=== PATIENT | female | born 1975 | race Caucasian/White ===

== ENCOUNTER 2025-01-04 17:08 | Inpatient (IN) | payer MEDICARE ==
[~2025-01-04] VITALS: Ht 152.4 cm; Wt 64.0 kg
[2025-01-04 17:32] LABS: COVID AG,FIA SOURCE NASAL SWAB
[2025-01-04 17:57] LABS: PLATELET COUNT (AUTO) 418 K/uL (150-450); RED BLOOD CELL COUNT(AUTO) 4.96 MIL/uL (4.00-5.20); RED CELL DISTRIBUTION WIDTH 12.9 % (11.5-14.5); WHITE BLOOD COUNT (AUTO) 10.7 K/uL (4.5-11.0)
[2025-01-04 18:06] LABS: CALCIUM, TOTAL 9.1 mg/dL (8.8-10.5); CREATININE 0.55 mg/dL (0.60-1.30); GLOMERULAR FILTR. RATE CALC > 60 mL/min (>60); GLUCOSE,RANDOM 104 mg/dL (70-110); SODIUM SERUM 136 mmol/L (136-145); UREA NITROGEN, BLOOD 11 mg/dL (7-18)
[2025-01-04 18:46] LABS: SARS-COV2 (COVID) ANTIGEN,FIA Negative (Negative)
[2025-01-04 19:16] LABS: PH,URINE DRUG SCREEN 5.5 (5.0-8.0)
[2025-01-04 19:27] LABS: ALCOHOL, URINE DRUG SCREEN NEGATIVE (NEGATIVE); AMPHET/METH SCREEN,URINE NEGATIVE (NEGATIVE); BARBITURATE SCREEN, URINE NEGATIVE (NEGATIVE); CANNABINOID SCREEN,URINE NEGATIVE (NEGATIVE); COCAINE SCREEN,URINE NEGATIVE (NEGATIVE); METHADONE SCREEN, URINE NEGATIVE (NEGATIVE)
[2025-01-04] MEDS ORDERED: ZOLPIDEM TARTRATE 10 MG TABLET PO PRN (19:45)
[2025-01-04 23:56] VITALS: O2SAT 98
[2025-01-05 02:32] VITALS: BP 108/65; PULSE 65; RESP 18; TEMP 98.2; O2SAT 100
[2025-01-05] MEDS ORDERED: OMEPRAZOLE 20 MG CAPSULE PO PRN (06:30)
[2025-01-05] MEDS ORDERED: ALBUTEROL SULFATE HFA 90 MCG/PUFF 8 GM INHALER IH PRN (06:30)
[2025-01-05] MEDS ORDERED: BACITRACIN 28 GM OINTMENT TP PRN (06:30)
[2025-01-05] MEDS ORDERED: ONDANSETRON 4 MG TABLET PO PRN (06:30)
[2025-01-05] MEDS ORDERED: DOCUSATE SODIUM 100 MG CAPSULE PO PRN (06:30)
[2025-01-05] MEDS ORDERED: BENZOCAINE/MENTHOL [CEPACOL] LOZENGE PO PRN (06:30)
[2025-01-05] MEDS ORDERED: MAGNESIUM HYDROXIDE SUSPENSION 30 ML UDCUP PO PRN (06:30)
[2025-01-05] MEDS ORDERED: PETROLATUM,WHITE 28 GM JELLY TP PRN (06:30)
[2025-01-05] MEDS ORDERED: MAG HYDROX/ALUMINUM HYD/SIMETH ES 30 ML SUSPENSION UDCUP PO PRN (06:30)
[2025-01-05] MEDS ORDERED: IBUPROFEN 600 MG TABLET PO PRN (06:30)
[2025-01-05] MEDS ORDERED: ACETAMINOPHEN 325 MG TABLET PO PRN (06:30)
[2025-01-05 08:27] VITALS: BP 107/74; PULSE 80; RESP 18; TEMP 98; O2SAT 99
[2025-01-05 20:35] VITALS: BP 109/50; PULSE 75; RESP 17; TEMP 98.2; O2SAT 99
[2025-01-06 08:29] VITALS: BP 112/68; PULSE 75; RESP 18; TEMP 96.4; O2SAT 98
[2025-01-06 20:20] VITALS: BP 114/59; PULSE 76; RESP 16; TEMP 97.8; O2SAT 95
[2025-01-07 08:06] VITALS: BP 112/67; PULSE 79; RESP 17; TEMP 97.1; O2SAT 98
[2025-01-07 20:09] VITALS: BP 105/67; PULSE 82; RESP 18; TEMP 98.4; O2SAT 98
[2025-01-08 08:45] VITALS: BP 108/67; PULSE 71; RESP 18; TEMP 98.2; O2SAT 98
[2025-01-08] MEDS: ESCITALOPRAM OXALATE 10 MG TABLET PO SCH (11:32)
[2025-01-08] MEDS: LOPERAMIDE HCL 2 MG CAPSULE PO PRN (19:11)
[2025-01-08 20:57] VITALS: BP 111/76; PULSE 69; RESP 16; TEMP 97.7; O2SAT 99
[2025-01-09 04:08] VITALS: BP 118/88; PULSE 75; RESP 17; TEMP 97.3; O2SAT 97
[2025-01-09 08:43] VITALS: BP 107/72; PULSE 83; RESP 17; TEMP 97.7; O2SAT 97
[2025-01-09 20:11] VITALS: BP 123/69; PULSE 74; RESP 17; TEMP 98.1; O2SAT 99
[2025-01-10 08:25] VITALS: BP 105/68; PULSE 77; RESP 18; TEMP 98.3; O2SAT 98
[2025-01-10 20:00] VITALS: BP 115/72; PULSE 75; RESP 18; TEMP 98.1; O2SAT 100
[2025-01-11 08:21] VITALS: BP 108/68; PULSE 67; RESP 16; TEMP 97.9; O2SAT 99
[2025-01-11] MEDS ORDERED: OXCA300T70 PO ×2 (12:21→12:22)
[2025-01-11] MEDS ORDERED: ESCI-8 PO (12:22)
[2025-01-11] MEDS ORDERED: ZIPR20CA38 PO (12:22)
== END 2025-01-11 14:17 | disposition home or self-care (01) | DRG 885 ==
LOC: EMS 17:08 → B2X 01-05 00:01 → EMS 01-05 00:11 → B2X 01-10 14:23
PROVIDERS: ADMIT Psychiatry & Neurology Psychiatry; ATTEND Psychiatry & Neurology Psychiatry
PROC: GZHZZZZ Group Psychotherapy (ICD-10-PCS; principal; 2025-01-05)
PROC: GZ52ZZZ Individual Psychotherapy, Cognitive (ICD-10-PCS; 2025-01-09)
DX: F31.4 Bipolar disorder, current episode depressed, severe, without psychotic features (principal); R45.851 Suicidal ideations; F41.9 Anxiety disorder, unspecified; G47.00 Insomnia, unspecified; K59.00 Constipation, unspecified; Z20.822 Contact with and (suspected) exposure to COVID-19; Z79.899 Other long term (current) drug therapy; Z90.710 Acquired absence of both cervix and uterus
CPT/HCPCS: 80048; 80307; 84703; 85025; 99285; G0480